=== PATIENT | male | born 2000 | race Caucasian/White ===

== ENCOUNTER 2024-05-25 10:23 | Day surgery (SDC) | payer BC, SELFPAY ==
[2024-05-23 13:09] VITALS: BMI 29.1
[2024-05-25] MEDS: LACTATED RINGERS 1000ML 1,000 ML 25 ML IV (10:35)
[2024-05-25 10:38] VITALS: BP 139/70; PULSE 89; RESP 18; TEMP 36.3; O2SAT 97
--- NOTE | 2024-05-25 10:49 | P.PNANES_ITS ---
[facility] Disclaimer: The information contained in this section may have been updated after the patient was seen, as this information can be updated by other users. Medical History Eosinophilic disorder Tachycardia Surgical History History of colonoscopy History of esophagogastroduodenoscopy (EGD) Family History Other Bicuspid cardiac valve Eosinophilic esophagitis Hypothyroidism Psoriatic arthritis Rheumatoid arthritis Social History Smoking Status: Never smoker alcohol intake: current substance use type: denies use current occupational status: student Travel in the last 8 weeks: None [facility] Anesthesia Checklist Patient Identification Patient Identification: Verbal (Name & ) Structural Data Admitted From: Home Planned Operative Procedure/s: colonoscopy NPO Status Verified Time NPO: 00:00 Airway Assessment Mallampati Score:: Class II C-Spine Mobility Assessed: Yes TMJ Mobility Assessed: Yes Dentition: Good Dentition Neurological Assessment Level of Consciousness: Awake, Alert and Appropriate Anesthesia Plan Anesthesia Risk discussed: No Anesthesia Plan: Verified ASA Class: II Anesthesia Type: MAC
--- NOTE | 2024-05-25 10:51 | P.HP_ITS ---
History of Present Illness *Admission Date: 05/25/24 *Reason for visit:: Change in bowel habits/loose stools with urgency and i ncomplete defecation *History of present illness: Mr. Justin is a 23-year-old gentleman who is here for diagnostic colonoscopy. The patient has had bowel irregularity with loose stools, frequency and incomplete defecation the examination is deemed medically necessary for [default value]. The patient has been seen, interviewed and examined prior to the procedure by both myself and the anesthesia provider. [facility] Disclaimer: The information contained in this section may have been updated after the patient was seen, as this information can be updated by other users. Medical History Eosinophilic disorder Tachycardia Surgical History History of colonoscopy History of esophagogastroduodenoscopy (EGD) Family History Other Bicuspid cardiac valve Eosinophilic esophagitis Hypothyroidism Psoriatic arthritis Rheumatoid arthritis Social History Smoking Status: Never smoker alcohol intake: current substance use type: denies use current occupational status: student Travel in the last 8 weeks: None Review of Systems Review of Systems Review of systems (narrative): Negative *Cardiovascular Comments: Negative *Gastrointestinal Comments: Negative *Genitourinary Comments: Negative *Musculoskeletal Comments: Negative *Neurologic Comments: Negative Meds Home Medications and Allergies Home Medications ?Medication ?Instructions ?Recorded ?Confirmed ?Type diphenoxylate-atropine 2.5 1 tab PO TID PRN diarrhea #90 tabs 05/11/24 05/23/24 Rx mg-0.025 mg tablet (Lomotil) hyoscyamine sulfate 0.125 mg tablet 0.125 mg PO QID #120 tabs 05/11/24 05/23/24 Rx ondansetron 4 mg disintegrating 4 mg PO DAILY nausea and vomiting 05/11/24 05/23/24 Rx tablet #30 tabs New Prescriptions to Start Prescriptions: Allergies Allergy/AdvReac Type Severity Reaction Status Date / Time Cephalosporins AdvReac Nausea Verified 04/04/24 09:30 Exam Data for Last 24 hours Vital signs and Labs for Last 24 Hours: Temp Pulse Resp BP Pulse Ox O2 Del Method 97.4 F L 89 18 139/70 97 Room Air 05/25/24 10:38 05/25/24 10:38 05/25/24 10:38 05/25/24 10:38 05/25/24 10:38 05/25/24 10:38 I & O for Last 24 hours: Intake & Output 05/22/24 05/23/24 05/24/24 05/25/24 23:59 23:59 23:59 23:59 Weight 215 lb *Routine HEENT Exam Head: Present normocephalic Eye: Present EOMI and PERRL ENT: Present mucous membranes moist *Routine Neck Exam Neck: Present supple *Routine Respiratory Exam Respiratory: Present CTA bilaterally *Routine Cardiovascular Exam Cardiovascular: Present RRR *Routine Abdominal Exam Abdominal: Present soft and normoactive bowel sounds; Absent tenderness *Routine Rectal Exam Rectal:: deferred *Routine Genitalia Exam Genitalia:: deferred *Routine Extremities Exam Extremities: Absent cyanosis, clubbing or edema *Routine Skin Exam Skin: Present warm; Absent rash *Routine Neurological Exam Neurological: Present alert and oriented X3 Assessment and Plan *Assessment and plan (1) Fecal urgency: Status: Acute Category: Medical Code(s): R15.2 - Fecal urgency (2) Bloating: Status: Acute Category: Medical Code(s): R14.0 - Abdominal distension (gaseous) (3) Incomplete defecation: Status: Acute Category: Medical Code(s): R15.0 - Incomplete defecation (4) Chronic diarrhea: Status: Acute Category: Medical Code(s): K52.9 - Noninfective gastroenteritis and colitis, unspecified Plan A/P: 1. Loose stools/chronic diarrhea with fecal urgency, bloating and incomplete defecation is the preprocedural diagnosis. The patient will be anesthetized/sedated using MAC sedation. The patient has been seen and examine d. Cardiac and lung assessment prior to the examination is stable. Proceed with planned colonoscopy
--- NOTE | 2024-05-25 10:53 | HMH.PROCNOTE ---
[facility] Procedure Note Date: 05/25/24 Time: 11:15 Procedure Note:: Colonoscopy Procedure Report: Colonoscopy with cold biopsies Endoscopist: Bruon Donald II, MD Referring physician: Aleksander Hough MD Date of Procedure: May 25, 2024 Equipment: Olympus 190 variable stiffness pediatric colonoscope Sedation: MAC sedation Indication: Mr. Justin is a 23-year-old gentleman who is here for diagnostic colonoscopy. The patient had seen me for initial consultation in October 2023. He had originally been seen at [facility] for many years but advanced beyond pediatric care. His maternal grandmother had Crohn's disease and collagenous colitis. His dad had a colectomy. His first cousin has Crohn's disease. His brother had eosinophilic esophagitis. The patient was diagnosed with eosinophilic esophagitis which was very mild at the time of his upper endoscopy in [place] in 2016. He was having postprandial nausea. He also had bowel irregularity with incomplete defecation and some frequency, long periods of time on the commode and excessive wiping. The patient was placed by me on MiraLAX plus Konsyl which he took for maybe a month and felt better. He started having more loose stools and stopped this regimen. He now reports recurrent symptoms of urgency, frequency and incomplete defecation with excessive wiping. The patient has been to see a dietitian in regard to low FODMAP. When he eats salads, onions and greens, he will have issues with urgency. This also occurs with red meats. He had been given Gimoti which helped with his intermittent nausea. He has not required much of this since his initial visit. His bowel movements are loose and never formed. However, he feels incomplete defecation. The patient did have a prior gastric emptying study that showed mildly delayed gastric emptying. The patient did have stool testing showing normal fecal calprotectin (77 mcg/g). His fecal elastase was normal (greater than 800 mcg/g). The patient has improved with resuming psyllium Konsyl and probiotic (Align). Procedure: Prior to the procedure, a history and physical exam was performed, and patient's medications and allergies were reviewed. The risks, benefits and alternatives of the sedation and procedure were discussed with the patient. All questions were answered and informed consent was obtained. The patient was brought to the procedure room. Patient identification and proposed procedure were verified by the physician and the nurse. The patient was placed in a left lateral decubitus position and the scope was passed under direct vision. Throughout the procedure, the patient's blood pressure, pulse, and oxygen saturations were monitored continuously. The colonoscopy was accomplished without difficulty. The patient tolerated the procedure well. Findings: On digital rectal examination there was normal rectal tone. There were no external hemorrhoids. The colonoscope was introduced through the anal canal to the rectum and advanced to the cecum. The ileocecal valve and appendiceal orifice were identified. The scope was advanced a short distance into the ileum which appeared grossly normal. The scope was then withdrawn into the colon. The cecum, ascending, transverse, descending, sigmoid and rectum were grossly normal. There were no mucosal abnormalities identified. Cold biopsies were taken randomly from the right colon and separately from the left colon to rule out microscopic colitis. Upon retroflexion within the rectum there were grade 1-2 internal hemorrhoids.The preparation was excellent throughout with [place] Preparation Score of 9. The cecal time was 12 minutes. Impression: 1. Normal colonoscopy with intubation of the terminal ileum 2. Grade 1-2 internal hemorrhoids Plan: I will follow-up the biopsies. 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 He has improved with psyllium and probiotic (Align). I do feel that neuromodulation may significantly improve and impact his symptoms. We will discuss this. I would like for him to continue the low FODMAP diet, psyllium and Align.
[2024-05-25 10:58] VITALS: O2SAT 99
[2024-05-25 11:16] VITALS: BP 101/65; PULSE 85; RESP 18; TEMP 36.4; O2SAT 94
[2024-05-25 11:26] VITALS: BP 92/59; PULSE 86; RESP 16; O2SAT 94
[2024-05-25 11:36] VITALS: BP 105/82; PULSE 81; RESP 16; O2SAT 99
[2024-05-25 11:46] VITALS: BP 117/58; PULSE 78; RESP 16; TEMP 36.6; O2SAT 98
== END 2024-05-25 11:50 | disposition home or self-care (01) ==
PROVIDERS: PCP Family Medicine; Visit Provider Internal Medicine Gastroenterology
PROC: (CPT 45380; principal; 2024-05-25 11:30)
DX: R15.2 Fecal urgency (principal); R14.0 Abdominal distension (gaseous); R15.0 Incomplete defecation; K52.9 Noninfective gastroenteritis and colitis, unspecified; K64.8 Other hemorrhoids
CPT/HCPCS: 45380; J7120